=== PATIENT | male | born 1970 | race African-American/Black ===

== ENCOUNTER 2019-03-19 15:40 | Outpatient (CLI) ==
[2016-08-08 23:45] VITALS: BMI 26.7
== END 2019-03-19 15:41 | disposition home or self-care (01) ==
LOC: LAB 15:40
PROVIDERS: ATTEND Surgery
DX: N18.6 End stage renal disease (principal); Z01.89 Encounter for other specified special examinations
CPT/HCPCS: 36415; 80048; 85025; 85610; 85730

== ENCOUNTER 2019-06-07 04:16 | Outpatient (CLI) ==
[2019-06-07 04:45] VITALS: BMI 20.7
== END 2019-06-07 04:22 | disposition critical access hospital (66) ==
LOC: AMBL 04:16
PROVIDERS: ATTEND Emergency Medicine
DX: R11.2 Nausea with vomiting, unspecified (principal); E16.2 Hypoglycemia, unspecified; N18.9 Chronic kidney disease, unspecified; Z99.2 Dependence on renal dialysis

== ENCOUNTER 2019-06-07 04:29 | Emergency (ER) ==
[2019-06-07 04:45] VITALS: BP 201/113; TEMP 98.4; BMI 20.7
[2019-06-07] MEDS ORDERED: SODIUM CHLORIDE 1,000 ML IV STA (04:54)
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
[2019-06-07] MEDS ORDERED: ZOFRAN ODT PO STA (05:40)
[2019-06-07] MEDS ORDERED: ZOFRAN 4 MG/2 ML IVP STA ×2 (05:41→10:54)
[2019-06-07] MEDS ORDERED: PHENERGAN 25 MG/ML VIAL 25 MG in SODIUM CHLORIDE 50 ML IV STA (06:43)
[2019-06-07] MEDS ORDERED: PHENERGAN 25 MG/ML VIAL ONE (06:47)
--- NOTE | 2019-06-07 06:58 | DI ---
EXAM: Chest one view HISTORY: Chest pain COMPARISON: 08/09/2016 TECHNIQUE: Single view of the chest was performed FINDINGS: Tunneled right IJ HD catheter terminates at the atriocaval junction. The lungs are clear. There is no pleural effusion or pneumothorax. The heart is normal in size. The mediastinal contour is normal. There are no acute abnormalities of the bones. IMPRESSION: No acute cardiopulmonary process.
--- NOTE | 2019-06-07 08:07 | CT ---
Exam. CT of the brain without intravenous contrast. Comparison: None available. Reason for exam: Pain. FINDINGS: No acute intracranial hemorrhage, mass effect, ventricular dilatation, or territorial infa rction. The intracranial structures appear midline. The calvarium is intact. The paranasal sinuses and mastoid air cells appear normally new. Impression: No acute intracranial findings
--- NOTE | 2019-06-07 08:16 | CT ---
Exam: CT abdomen pelvis without intravenous contrast. Protocol Comparison: None available. Reason for exam: Pain. FINDINGS: Image interpretation is limited by the lack of intravenous contrast. Mild basilar atelectasis without pleural effusion, or focal airspace consolidation. Granulomas disease is seen within the hepatic parenchyma. Evaluation of the intra-abdominal organs i s limited by paucity of intra-abdominal fat and a lack of intravenous contrast. The gallbladder and spleen appear grossly unremarkable. No hydronephrosis or nephrolithiasis is seen. The ureters are incompletely evaluated throughout the abdomen and pelvis secondary to a lack of excreted contrast. No evidence of small bowel dilatation or focal transition point. The appendix is not definitively seen on the exam although there are no obvious inflammatory changes in the expected location of the appendix. No suspicious appearing osteoblastic or osteolytic lesion. Impression: 1. Limited evaluation secondary to a paucity of intra-abdominal fat and a lack of intravenous contra st without obvious hydronephrosis or nephrolithiasis. The ureters are incompletely evaluated on the exam secondary to a lack of excreted contrast. 2. No acute inflammatory findings are seen within the abdomen or pelvis.
--- NOTE | 2019-06-07 08:21 | CT ---
Exam: CT chest without intravenous contrast. Comparison: None available. Reason for exam: Cough. FINDINGS: Image interpretation is limited by the lack of intravenous contrast. No pneumothorax, pleural effusion, or focal airspace consolidation. The aorta is normal in course an d caliber measuring 3.5 cm at the level of the arch. Atherosclerotic disease is seen within the aort a and distal arterial vasculature including the coronary vessels. Large bore central venous catheter is seen with the tip in the superior vena cava. No suspicious flory earing osteoblastic or osteolytic lesions. Impression: No acute imaging findings are seen within the thorax.
[2019-06-07] MEDS ORDERED: CARDENE-NACL 20 MG/200 ML SOLN 20 MG in PREMIX 200ML 0.86% SODIUM CHLORIDE 1 BAG IV SCH (10:00)
--- NOTE | 2019-06-07 10:01 | DI ---
Exam: Single view of the chest. Comparison: CT chest performed 06/07/2019. Reason for exam: Short of breath. FINDINGS: Right-sided central venous catheter is seen with the tip in the superior vena cava. No pn eumothorax, pleural effusion, or focal consolidation. Impression: No acute cardiopulmonary process.
== END 2019-06-07 12:02 | disposition short-term general hospital (02) ==
LOC: ED 04:29
DX: R11.2 Nausea with vomiting, unspecified (principal); I16.0 Hypertensive urgency; N18.9 Chronic kidney disease, unspecified; D63.1 Anemia in chronic kidney disease; Z79.899 Other long term (current) drug therapy; R06.02 Shortness of breath; R10.9 Unspecified abdominal pain; E11.9 Type 2 diabetes mellitus without complications; E78.5 Hyperlipidemia, unspecified
CPT/HCPCS: 36415; 80053; 80307; 82550; 82553; 82803; 82962; 83605; 84145; 84484; 85025; 85610; 85730; 87040; 93005; 93010; 96361; 96365; 96375; 96376; 99285

== ENCOUNTER 2019-06-07 12:05 | Outpatient (CLI) ==
[2019-06-07 04:45] VITALS: BMI 20.7
== END 2019-06-07 12:25 | disposition short-term general hospital (02) ==
LOC: AMBL 12:05
PROVIDERS: ATTEND Internal Medicine
DX: R11.2 Nausea with vomiting, unspecified (principal); R06.02 Shortness of breath; R00.0 Tachycardia, unspecified; N18.9 Chronic kidney disease, unspecified; Z99.2 Dependence on renal dialysis; E11.9 Type 2 diabetes mellitus without complications